=== PATIENT | female | born 1955 | race Caucasian/White ===

== ENCOUNTER 2017-06-24 13:45 | Emergency (ER) | payer OTHER ==
[2017-06-24 14:08] VITALS: BP 143/81
--- NOTE | 2017-06-24 14:16 | UC ---
Lower Extremity/Ankle HPI - HPI Summary HPI Summary: 62F presents with right foot and ankle pain since last night. She states she tripped down the stairs and twisted her ankle. She denies any numbness or tingling. She is still able to ambulate. She took ibuprofen for pain. She denies any previous injury to the area. Her pain is 5/10. She denies any head trauma. She has pain in her left knee to but she has full ROM. - History of Current Complaint Chief Complaint: UCLowerExtremity Stated Complaint: FOOT INJURY Time Seen by Provider: 06/24/17 14:09 - Allergies/Home Medications Allergies/Adverse Reactions: Allergies Allergy/AdvReac Type Severity Reaction Status Date / Time Ampicillin Allergy Rash Verified 06/24/17 14:02 CT CONTRAST Allergy RESPIRATORY Uncoded 06/24/17 14:02 RXN PMH/Surg Hx/FS Hx/Imm Hx Endocrine History: Other Other Endocrine History: no DM Cardiovascular History: Hypertension - Surgical History Surgical History: Yes Surgery Procedure, Year, and Place: 2005 LT HIP REPAIR FOR LABRAL TEAR - Family History Known Family History: Positive: Hypertension - Social History Alcohol Use: None Substance Use Type: None Smoking Status (MU): Never Smoked Tobacco Review of Systems Constitutional: Negative Respiratory: Negative Cardiovascular: Negative Musculoskeletal: Arthralgia - right ankle All Other Systems Reviewed And Are Negative: Yes Physical Exam Triage Information Reviewed: Yes Appearance: Well-Appearing Vital Signs: Initial Vital Signs Temp 99.1 F 06/24/17 14:03 Pulse 88 06/24/17 14:03 Resp 16 06/24/17 14:03 BP 143/81 06/24/17 14:03 Pulse Ox 100 06/24/17 14:03 Vital Signs Reviewed: Yes Eye Exam: Normal ENT Exam: Normal ENT: Positive: Normal ENT inspection, Pharynx normal, TMs normal Respiratory: Positive: Lungs clear, Normal breath sounds Cardiovascular: Positive: RRR Musculoskeletal: Positive: Strength Intact - right foot and ankle with pain, Edema @ - lateral aspect of ankle, Other: - ecchmoysis of right lateral ankle, good pulses, capillary refill<2 secs, nontender patella left knee, tenderness on medial aspect left knee with full ROM, Neurological: Positive: Alert Psychological: Positive: Age Appropriate Behavior Skin: Positive: Other - ecchymosis on lateral aspect of ankle and foot right Diagnostics - Radiology foot, ankle Xray Interpretation: No Acute Changes - soft tissue swelling, no fx Radiology Interpretation Completed By: Radiologist Lower Extremity Course/Dx - Course Course Of Treatment: 62F presents with right foot and ankle pain since last night. She states she tripped down the stairs and twisted her ankle. She denies any numbness or tingling. She is still able to ambulate. She took ibuprofen for pain. She denies any previous injury to the area. Her pain is 5/ 10. She denies any head trauma. She has pain in her left knee to but she has full ROM. left knee no patella tenderness and full ROM and able to bear weight so according to [place] knee rules does not need imaging of knee. tenderness over lateral aspect of right foot and ankle with ecchymosis noted. xray read as normal by me and confirmed by radiology. will treat with RICE. told to follow up with primary about blood pressure. patient understands and agrees with plan. - Differential Dx/Diagnosis Differential Diagnosis/HQI/PQRI: Fracture (Closed), Sprain, Strain Provider Diagnoses: right ankle sprain, elevated blood pressure Discharge - Discharge Plan Condition: Good Disposition: HOME Patient Education Materials: Ankle Sprain (ED) Referrals: Juan Diego Ji MD [Primary Care Provider] - Additional Instructions: Take Tylenol or ibuprofen every 6 hours as needed for pain Apply ice, rest, elevate Follow up with primary care physician within 5 days about blood pressure Return to ED if develop any new or worsening symptoms
--- NOTE | 2017-06-24 14:54 | RAD ---
HISTORY: Right foot injury COMPARISONS: Right foot dated June 24, 2017 VIEWS: 3, Frontal, lateral, and oblique views of the right foot FINDINGS: BONE DENSITY: Normal. BONES: There is no displaced fracture. JOINTS: There is no arthropathy. ALIGNMENT: There is no dislocation. SOFT TISSUES: There is circumferential soft tissue swelling OTHER FINDINGS: None. IMPRESSION: SOFT TISSUE SWELLING. NO ACUTE OSSEOUS INJURY. IF SYMPTOMS PERSIST, RECOMMEND REPEAT IMAGING.
--- NOTE | 2017-06-24 14:55 | RAD ---
Indication: Pain at the base of the fifth metatarsal and lateral ankle post fall. Some fourth and fifth toe pain. Comparison: June 24, 2017 RIGHT ankle exam. Technique: AP, lateral, and oblique views RIGHT foot. Report: Negative for fracture or dislocation. Normal variant bipartite sesamoid at the medial head of the flexor hallucis brevis. Mild hallux valgus deformity. No significant degenerative arthropathic change. Unremarkable soft tissue contours. IMPRESSION: No traumatic injury of the RIGHT foot evident.
== END 2017-06-24 15:03 | disposition home or self-care (01) ==
LOC: UCEAST 13:45
DX: S93.401A Sprain of unspecified ligament of right ankle, initial encounter (principal); Z88.3 Allergy status to other anti-infective agents; Z91.041 Radiographic dye allergy status; I10 Essential (primary) hypertension; W01.0XXA Fall on same level from slipping, tripping and stumbling without subsequent striking against object, initial encounter
CPT/HCPCS: 99212; G0463